=== PATIENT | male | born 1990 | race Caucasian/White ===

== ENCOUNTER → 2025-05-14 | Outpatient (CLI) | payer OTHER ==
[~2025-05-14] MED LIST: LATU1TAB PO; PROV100T25 PO; TRAZ-257 PO; ZOLO50TA PO
[2025-05-14 12:12] LABS: CHOLESTEROL LEVEL 144.0 MG/DL (<200); CHOLESTEROL RISK RATIO 3.17 (<5); LDL CHOLESTEROL 80.8 MG/DL (<100); NON-HDL-C 98.6 MG/DL; TRIGLYCERIDES LEVEL 89.0 MG/DL (<150)
[2025-05-14 13:13] LABS: ESTIMATED AVERAGE GLUCOSE 94.0 MG/DL (60-110)
== END ==
LOC: M PLALAB 07:41
DX: F43.10 Post-traumatic stress disorder, unspecified (principal)